=== PATIENT | male | born 1945 | race Caucasian/White ===

== ENCOUNTER → 2019-10-24 | Outpatient (CLI) | payer MEDICARE, OTHER ==
[~2019-10-24] MED LIST: SILO8CAP2 PO
== END | disposition home or self-care (01) ==
LOC: RAH 11:13
PROVIDERS: ATTEND Family Medicine
DX: I73.9 Peripheral vascular disease, unspecified (principal)
CPT/HCPCS: 93922

== ENCOUNTER → 2025-08-28 | Outpatient (CLI) | payer MEDICARE ==
[~2025-08-28] MED LIST changes: +IOHEXOL-350 75 ML VIAL IV ONE
--- NOTE | 2025-08-29 08:22 | HMCIMG ---
EXAM: CT Abdomen and Pelvis with and without IV contrast CLINICAL HISTORY: RIGHT INGUINAL HERNIA TECHNIQUE: Axial computed tomography images of the abdomen and pelvis with and without intravenous contrast. CONTRAST: With and without intravenous contrast. COMPARISON: None provided. FINDINGS: LUNG BASES: 4 mm nodule of the left lung base. No pleural effusions are seen. Coronary artery calcifications. LIVER: Unremarkable. GALLBLADDER AND BILE DUCTS: The gallbladder appears within normal limits. No radioopaque gallstones are seen. No biliary ductal dilatation is evident. PANCREAS: Unremarkable. SPLEEN: Multiple small 2-3 mm calcified granuloma in the spleen ADRENAL GLANDS: Unremarkable. KIDNEYS, URETERS, AND BLADDER: The kidneys appear within normal limits. There is no hydronephrosis or hydroureter. No urinary calculi are seen. Bilateral perinephric fat stranding could be due to a chronic urinary tract infection. A large non-enhancing right parapelvic cyst of size 57 x 37 mm, seen near the renal hilum. Another exophytic cyst of size 17 x 13 mm arising from the lower pole cortex of the right kidney. The urinary bladder is distended and shows a mildly circumferentially enhancing thickened wall, measuring 5 mm, suggestive of cystitis. STOMACH AND BOWEL: Unremarkable appearance of the stomach and bowel. No evidence of bowel obstruction. No evidence suggesting enteritis or colitis. Small hiatus hernia. Contrast-filled large bowel loops. The small omental fat containing the right inguinal hernia, measurable defect size of 18 mm. APPENDIX: No evidence of acute appendicitis on CT examination. PERITONEUM: No free fluid. No free air. LYMPH NODES: No lymphadenopathy is evident. REPRODUCTIVE: Unremarkable as visualized. Normal-sized prostate VASCULATURE: No evidence of abdominal aortic aneurysm. Multiple calcified atherosclerotic plaques in the abdominal aorta and its branches. BONES: No aggressive appearing osseous lesion. No acute osseous pathology evident. Trace retrolisthesis of L3 over L4 vertebrae. Reduced disc height of L2-L3, with posterior disc osteophytes complex encroaching into the spinal canal, with mild narrowing of spinal canal diameter and moderate narrowing of bilateral intervertebral neural foramina. IMPRESSION: Subcentimeter nodule in the left lower lobe. A follow-up chest CT is recommended. Right omental fat containing an inguinal hernia, with no feature of incarceration. No bowel containing hernia. Small hiatus hernia. No bowel obstruction or inflammation. Right renal cysts as described. No hydronephrosis. Atherosclerosis and coronary artery disease. /[place]
== END | disposition home or self-care (01) ==
LOC: RAH 07:51
PROVIDERS: ATTEND Family Medicine
DX: K40.90 Unilateral inguinal hernia, without obstruction or gangrene, not specified as recurrent (principal); R91.1 Solitary pulmonary nodule; K44.9 Diaphragmatic hernia without obstruction or gangrene; N28.1 Cyst of kidney, acquired; I25.10 Atherosclerotic heart disease of native coronary artery without angina pectoris; M43.16 Spondylolisthesis, lumbar region; M25.78 Osteophyte, vertebrae; M48.061 Spinal stenosis, lumbar region without neurogenic claudication; I70.0 Atherosclerosis of aorta; D73.89 Other diseases of spleen
CPT/HCPCS: 74178; Q9967

== ENCOUNTER → 2025-09-08 | Outpatient (CLI) | payer MEDICARE ==
[~2025-09-08] MED LIST changes: +IOHEXOL-350 50ML VIAL IV ONE; -IOHEXOL-350 75 ML VIAL IV ONE
--- NOTE | 2025-09-09 01:49 | HMCIMG ---
EXAM: CT SCAN OF THE CHEST WITH AND WITHOUT CONTRAST Clinical statement: Solitary pulmonary nodule; evaluation for pulmonary nodule and thoracic pathology. STUDY PROTOCOL: CT radiation dose protocol was performed in accordance with the principles of ALARA. A multislice CT scan of the chest was performed from the lung apices through the upper abdomen with noncontrast and contrast-enhanced acquisitions and multiplanar reformations. RADIATION DOSE: CTDIvol 11.60 mGy; DLP 477.60 mGycm. CONTRAST: Standard dose of intravenous contrast administered. COMPARISON: CT scan of the chest with and without contrast from 09/23/2012. FINDINGS: Soft tissues: No axillary or chest wall mass is identified. No abnormal subcutaneous soft tissue lesion is seen. Lungs and large airways: Tracheobronchial tree is patent. Emphysematous changes are present in both lungs with increased lucency and attenuation of peripheral vasculature. Mild scarring is present at the left lung apex. A densely calcified, well-defined nodule in the right lower lobe measures approximately 10 x 15 mm (series 2, image 42/[id number]), without associated noncalcified soft tissue component or surrounding ground-glass opacity, compatible with a benign calcified granuloma. No additional suspicious noncalcified pulmonary nodule, mass, or focal consolidation is identified. Pleura: No pleural effusion, pleural mass, or pneumothorax is identified. Heart and pericardium: Heart size is within normal limits. No pericardial effusion is seen. Moderate coronary artery calcifications are present, compatible with coronary atherosclerosis. Aorta: Thoracic aorta is normal in caliber with proximal ascending aorta measuring approximately 32 mm. Mild atherosclerotic calcifications are present along the thoracic aorta without aneurysm or dissection. Pulmonary arteries: Central pulmonary arteries are well opacified without intraluminal filling defect to suggest acute pulmonary embolism. Lymph nodes: No pathologically enlarged mediastinal, hilar, or axillary lymph nodes are identified. Small calcified subcarinal lymph nodes are present, compatible with healed granulomatous disease. Mediastinum and jazmin: Mediastinal contours and hilar structures appear unremarkable without discrete mediastinal or hilar mass. Chest wall and lower neck: No chest wall mass or fluid collection is identified. Visualized lower neck structures are unremarkable. Bones/joints: Mild degenerative changes are present in the thoracic spine. No acute fracture or destructive osseous lesion is identified. Upper abdomen: Stable multiple tiny calcific densities in the spleen, compatible with healed granulomatous disease. Liver demonstrates stable low attenuation compatible with hepatic steatosis on this limited upper abdominal assessment. No acute upper abdominal abnormality is identified. Moderate sized right renal cyst follow up with US. IMPRESSION: * Densely calcified 10 x 15 mm right lower lobe pulmonary nodule with associated calcified mediastinal lymph nodes and splenic granulomas, most consistent with a benign calcified granuloma in the setting of prior granulomatous disease. Imaging features are benign, and no additional CT follow-up for this calcified nodule is required under current pulmonary nodule guidelines. * Emphysematous changes in both lungs with mild left apical scarring, compatible with underlying chronic obstructive or smoking-related lung disease; correlate with smoking history and spirometry, and manage per pulmonary guidelines (including smoking cessation and COPD evaluation where applicable). * Moderate coronary and mild thoracic aortic atherosclerotic calcifications, indicative of established atherosclerotic cardiovascular disease; optimization of cardiovascular risk factors (blood pressure, lipids, glycemic control, and lifestyle) should be guided by current clinical practice standards. * Stable hepatic steatosis and calcified splenic and mediastinal lymph node granulomas, without CT evidence of active intra-thoracic or upper abdominal malignancy.Moderate sized right renal cyst follow up with US. * Compared with the CT chest with and without contrast from 09/23/2012, there is interval development or recognition of emphysematous lung changes and a densely calcified right lower lobe nodule, with no new suspicious noncalcified pulmonary nodules, no new thoracic lymphadenopathy, and stable benign-appearing granulomatous calcifications and hepatic steatosis. /[place]
== END | disposition home or self-care (01) ==
LOC: RAH 13:39
PROVIDERS: ATTEND Family Medicine
DX: J43.9 Emphysema, unspecified (principal); R91.1 Solitary pulmonary nodule; J98.4 Other disorders of lung; I70.0 Atherosclerosis of aorta; I25.10 Atherosclerotic heart disease of native coronary artery without angina pectoris; K76.0 Fatty (change of) liver, not elsewhere classified; N28.1 Cyst of kidney, acquired; Z87.891 Personal history of nicotine dependence
CPT/HCPCS: 71270; Q9967